=== PATIENT | male | born 1940 ===

== ENCOUNTER 2018-04-02 11:18 | Outpatient (CLI) | payer OTHER ==
[~2018-04-02] VITALS: Ht 175.3 cm; Wt 74.8 kg
[2018-04-02] MEDS ORDERED: MEDROL4 MG PO (14:33)
[2018-04-02] MEDS ORDERED: CEFUROXIME500 MG PO (14:33)
[2018-04-02] MEDS ORDERED: FLONASE16 GM NASAL (14:34)
== END 2018-04-02 11:35 | disposition home or self-care (01) ==
LOC: OFIC 805 11:18
DX: J32.8 Other chronic sinusitis (principal); J33.8 Other polyp of sinus; J34.2 Deviated nasal septum; R05 Cough; M95.0 Acquired deformity of nose